=== PATIENT | female | born 1955 | race Caucasian/White ===

== ENCOUNTER → 2018-10-28 | Outpatient (CLI) | payer BC ==
--- NOTE | 2018-10-28 16:01 | PCVCIMAG ---
APPROVED REPORT Study performed: 10/28/2018 13:48:07 Exam: Stress Echocardiogram Indication: Chest pain Patient Location: Echo lab Stress Nurse: Marta Jesus RN Status: routine Ht: 5 ft 9 in HR: 70 bpm BP: 144/68 mmHg Rhythm: NSR Medical History Medical History: Hyperlipidemia, HTN Procedure The patient underwent an Exercise Stress Test using the Shahid Protocol. Blood pressure, heart rate, and EKG were monitored. An Echocardiogram was performed by orthodontic laboratory technician in four stages in quad fashion. At peak stress, four selected images were obtained and placed side by side with resting images for comparison. Stress Test Details Stress Test: Exercise stress testing was performed using a Shahid protocol. HR Resting HR: 70 bpmMax Heart Rate (APMHR): 156 bpm Max HR Achieved: 148 bpmTarget HR (85% APMHR): 132 bpm % of APMHR: 94 Recovery HR: 84 bpm HR response to stress: Normal HR response to stress BP Resting BP: 144/68 mmHg Max BP: 204/80 mmHg Recovery BP: 180/78 mmHg BP response to stress: Normal blood pressure response to stress. ECG Resting ECG: Sinus Rhythm Stress ECG: Sinus Rhythm Recovery ECG: Sinus Rhythm Clinical Reason for Termination: Maximal effort Exercise duration: 9 min 00 sec Highest Stage Achieved: Stage 3: 3.4 mph at 14% grade. Exercise capacity: 10.10 METs Overall Exercise Capacity for Age: Good Stress ECG Conclusion ECG: Non-ischemic Clinical: Non-ischemic Pre-Stress Echo The resting Echocardiogram showed normal left ventricular contractility with an estimated Ejection Fraction of about >55%. Normal wall motion in all segments on baseline images. Post-Stress Echo The stress Echocardiogram showed normal left ventricular contractility with an estimated Ejection Fraction of about 60-65%. Normal augmentation of wall motion in all segments on post stress images. Clinical No clinical or ECG evidence for ischemia. Conclusion Clinical Response: Non-ischemic Exercise Capacity: Average Stress ECG Response: Non-ischemic Stress Echo Images: Non-ischemic The left ventricle is normal in size and wall thickness in both the rest and stress images. Other Information Study Quality: Adequate <Conclusion> The left ventricle is normal in size and wall thickness in both the rest and stress images.
--- NOTE | 2018-10-28 16:59 | PCVCIMAG ---
EXAM: ABDOMINAL ULTRASOUND COMPLETE INDICATION: Abdominal pain FINDINGS: Gallbladder: No gallstones. No wall thickening or abnormal pericholecystic fluid. Note is made gallbladder is somewhat small and contracted because patient is not fasting. Liver: Normal in size measuring 17.4 cm in length. 2.8 x 2.9 x 3.1 cm benign cyst left hepatic lobe laterally would account for the low-density lesion seen in the liver on recent calcium scoring CT. No worrisome hepatic lesions identified. Bile ducts: No intra or extra hepatic bile duct dilatation. The common bile duct measures 2.1 mm. Pancreas: Unremarkable where seen. Spleen: Normal in size measuring 9.3 cm in greatest dimension. No focal masses. Right kidney: No hydronephrosis. Length measures 11.8 cm. Left kidney: No hydronephrosis. Length measures 11.3 cm. Inferior vena cava: Normal in size where seen. Aorta: Normal in caliber where seen. IMPRESSION: 3.1 cm benign cyst left hepatic lobe laterally appears to correspond to low-density lesion in the liver seen incidentally on recent calcium scoring CT. Abdomen otherwise unremarkable. LOC:[id number]
== END | disposition home or self-care (01) ==
LOC: PCVCIMAG 13:37
PROVIDERS: ATTEND Internal Medicine Cardiovascular Disease
DX: R07.9 Chest pain, unspecified (principal); K76.9 Liver disease, unspecified; D89.89 Other specified disorders involving the immune mechanism, not elsewhere classified; I10 Essential (primary) hypertension; E78.00 Pure hypercholesterolemia, unspecified; Z88.0 Allergy status to penicillin
CPT/HCPCS: 76700; 93325; 93351